=== PATIENT | female | born 1980 | race Caucasian/White ===

== ENCOUNTER 2022-11-03 14:02 | Outpatient (REF) | payer OTHER, SELFPAY ==
--- NOTE | 2022-11-03 14:13 | ECG_ITS ---
Test Reason : F50.9 Blood Pressure : / mmHG Vent. Rate : 061 BPM Atrial Rate : 061 BPM P-R Int : 130 ms QRS Dur : 080 ms QT Int : 384 ms P-R-T Axes : 061 081 076 degrees QTc Int : 386 ms Normal sinus rhythm Normal ECG When compared with ECG of 09-MAR-2009 06:54, Nonspecific T wave abnormality no longer evident in Anterior leads Referred By: Carolyn Haji Electronically Signed By:SONNY RUIZ MD
[2022-11-03 14:25] LABS: MANUAL DIFF FLAG NO
[2022-11-03 14:44] LABS: Basophils Absolute Auto 0.1 X10*3/uL (0.0-0.2); Basophils Percent Auto 0.9 % (0-2); Eosinophils Percent Auto 0.2 % (0-4); Hematocrit 40.7 % (37.0-47.0); Hemoglobin 13.3 g/dl (12.0-16.0); Imm Gran Abs Auto 0.02 X10*3/uL (0.00-0.03); Imm Gran Pct Auto 0.4 % (0.0-0.4); Lymphocytes Absolute Auto 1.8 X10*3/uL (1.2-4.9); Mean Corpuscular HGB Conc 32.7 g/dl (31.0-35.0); Mean Corpuscular Hemoglobin 33.3 pg (27.0-33.0); Mean Platelet Volume 9.1 fL (9.4-12.3); Monocytes Absolute Auto 0.6 X10*3/uL (0.1-1.2); Monocytes Percent Auto 10.6 % (2-11); Neutrophils Percent Auto 54.9 % (45-73); Platelet Count 368 X10*3/uL (160-400); Red Blood Count 3.99 X10*6/uL (4.20-5.50); Red Cell Distribution Width 12.1 % (11.0-16.0); White Blood Count 5.5 X10*3/uL (4.8-10.8)
[2022-11-03 14:52] LABS: INTERNATIONAL NORM RATIO 0.9 (0.9-1.1); Prothrombin Time 10.1 SEC (10.0-13.1)
[2022-11-03 15:17] LABS: Alanine Aminotransferase 15 U/L (0-31); Albumin Level 4.6 g/dL (3.5-5.0); Alkaline Phosphatase 63 U/L (39-117); Anion Gap 12 (12-20); Aspartate Amino Transferase 18 U/L (5-31); Bilirubin Total 0.7 mg/dL (0.0-1.0); Blood Urea Nitrogen 10 mg/dL (9-16); Calcium 10.5 mg/dL (8.4-10.2); Carbon Dioxide 28 mmol/L (22-29); Chloride 106 mmol/L (96-108); Estimated Glomerular Filt Rate > 60; Gamma Glutamyl Transpeptidase 25 U/L (7-33); Glucose Random 108 mg/dL (60-115); Potassium 4.8 mmol/L (3.3-5.1); Sodium 141 mmol/L (135-145); Total Protein 7.3 g/dL (6.5-8.0)
[2022-11-03 15:41] LABS: T4 Thyroxine 6.5 ug/dL (4.5-12.0); Thyroid Stimulating Hormone 0.67 uIU/mL (0.32-4.0); Vitamin B12 633 pg/mL (200-900); Vitamin D 25-OH Total 40.3 ng/mL (>30)
== END 2022-11-03 14:03 | disposition home or self-care (01) ==
LOC: HO.LAB 14:02
PROVIDERS: Visit Provider Nurse Practitioner Psychiatric/Mental Health
DX: F50.9 Eating disorder, unspecified (principal); F33.2 Major depressive disorder, recurrent severe without psychotic features
CPT/HCPCS: 36415; 80053; 82306; 82607; 82746; 82977; 84436; 84443; 85025; 85610; 93005

== ENCOUNTER 2022-11-07 10:45 | Outpatient (RCR) | payer OTHER, SELFPAY ==
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
--- NOTE | 2022-10-27 13:50 | PC.ADMIT ---
Patient is a 42 year old female who was referred to [facility] by her therapist d/t increase in depression with passive SI. Patient stated Passive thoughts, think about . Denied any plan or intent to kill herself. Patient given a copy of her safety plan and I reviewed her plan with her. Patient reports she is currently struggling with , disordered eating stating she does not eat enough and has lost 10 lbs in the past few months. Patient did not want to be weighted at this time and did not want to discuss this any further. Patient appearance is thin and underweight. She has a history of anorexia and bulimia and has a history of being in treatment x2. Patient does not want to address this at this time and wants to concentrate on her depressive symptoms. Patient also reports drinking 2 glasses of wine 5 times a week. She acknowledges how this may be an issue for her and is thinking about quitting however is unsure. Patient stated she drank much more while in college. 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 Patient reports since the pandemic she has been struggling with depression however her boyfriend of over a year ghosted her and broke up with her out of the blue which increased the severity of her depressive symptoms. She reports spending more time in bed. Patient has a history of trauma, see Intergrative Assessment for more information. Patient presents with depressed mood and affect. She is calm and cooperative. Medications reconciled with patient and her pharmacy. She reports taking medications as prescribed.
[2022-10-27 14:00] VITALS: BP 100/62; PULSE 73
[2022-10-27 14:10] VITALS: BMI 18.6
--- NOTE | 2022-10-27 14:10 | PC.NURSE ---
Patient documented her weight as 119 lbs in the Intake Questionnaires she completed.
--- NOTE | 2022-10-30 15:50 | HO.PHP ---
Clients case was reviewed and opened today in treatment team.
--- NOTE | 2022-10-31 13:41 | HO.PHP ---
PHP staff reached out to Марина's OP therapist to inform her of how Марина has been engaging and when her scheduled discharge date is. Марина's OP therapist phone did not have a VM, unable to leave a message.
--- NOTE | 2022-11-03 11:45 | HO.PHP ---
[facility] staff placed a referral to [facility] Psychiatry for Марина and faxed the form over. [facility] staff is awaiting a phone call about a scheduled intake.
--- NOTE | 2022-11-05 13:10 | HO.PHP ---
PHP staff member was able to obtain a psychiatry appointment for Марина through the [facility] in [place], in which she has a scheduled appointment for December 01, 2022 at 9 AM. Марина was pleased that an appointment was scheduled and noted it will be occurring the day prior to her taking a long vacation so it works out well. Марина also mentioned her PCP stated her case is too complex and no longer wants to prescribe her medication.
--- NOTE | 2022-11-07 11:59 | P.PNPSP_ITS ---
Subjective Subjective Date of Service: 11/07/22 Reason For Visit: anxiety,depression Interim History: Feels program has been helpful, less depressed. Anxious about completing program today. Has been taking the increased dose of fluvoxamine, tolerating well. No SI reported, no safety concerns. Plans to take time off from work, do some traveling this summer. Medication Compliance: Yes Side effects from medications: No Attending Groups: Yes Review of Systems Acute medical concerns: No Medical Review of Systems: unchanged Review of Systems Review of Systems Yes all other systems are reviewed and are negative Constitutional: Reports no additional constitutional complaints Mental Status Exam Mental Status Exam Narrative: NAD Patient Appearance: Appropriate Patient Orientation: Person, Place, Time and Situation Level of Consciousness: Appropriate and Alert Patient Behavior: Appropriate, Cooperative and Good Eye Contact Mood Description: Depressed (less) and Anxious (improved) Affect Description: Depressed (improved) and Anxious (improved) Patient Cognition Impaired: No Ability to Follow Directions: Excellent Speech Pattern: Clear and Appropriate Memory Description: Intact Hallucinations: None Delusions: Not Present Thought Process: Intact Depressive Symptoms: Increased Anxiety Judgement: Good Diagnostics Vital Signs (24Hr): BMI result Body Mass Index 18.6 Assessment & Plan Assessment & Plan (1) Major depressive disorder, recurrent severe without psychotic features: Status: Acute Code(s): F33.2 - Major depressive disorder, recurrent severe without psychotic features Assessment and Plan: Feels program has been helpful, less depressed. Anxious about completing program today, concerned that she will lose the progress she has made here. However, she has been practicing the coping skills, finding them helpful. Has been taking the increased dose of fluvoxamine, tolerating well. Will continue with fluvoxamine 150 mg at this time. No SI reported, no safety concerns. Plans to take time off from work, do some traveling this summer. (2) Obsessive-compulsive disorder, unspecified: Status: Acute Code(s): F42.9 - Obsessive-compulsive disorder, unspecified (3) Disordered eating: Status: Acute Code(s): F50.9 - Eating disorder, unspecified Assessment and Plan: Information provided regarding [place] care. Labs reviewed with patient. EKG results reviewed. Plan 1. Patient appears stable for discharge from [facility] at this time. 2. Patient has intake appointment scheduled at [facility] in [place] with new psychiatric provider. Patient educated on: diagnosis, medication risk/benefits and therapeutic strategies Informed Consent: understands Reason for contiued partial hosp. stay Substantial Risk for: stable for discharge Certification I certify that partial hospital treatment is medically necessary due to the symptoms and problems resulting from the patient's mental illness and the failure to treat the patient at the partial hospital level of care would likely result in the patient requiring inpatient psychiatric care which could not be prevented at a less intensive level of care. Total time managing care of this patient today ___20_ minutes. Discharge Plan Discharge Attending provider: Brandin Bowles Medications: New fluvoxamine 50 mg tablet 50 mg PO BEDTIME Qty: 30 0RF Rx Instructions: Take one tab in addition to fluvoxamine 100mg at bedtime. Discontinued fluvoxamine 25 mg tablet 25 mg PO BEDTIME Patient Comments: Patient takes at HS. Rx Instructions: Take with 100 mg tab daily. No Action lamotrigine 150 mg tablet 300 mg PO DAILY Low-Ogestrel (28) 0.3-30 mg-mcg tablet 1 tab PO DAILY Patient Comments: Patient stated she stopped using however is planning on restarting. clonazepam 0.5 mg tablet 0.5 mg PO BID PRN (Reason: anxiety) Patient Comments: Patient stated she uses only when needed. Rx Instructions: Last filled 07/18/22 #60 prn. fluvoxamine 100 mg Tablet 100 mg PO BEDTIME Patient Comments: Patient stated she was taking 175 mg however decreased the dose accordingly with her prescriber d/t side effects. acetaminophen 500 mg Capsule 1,000 mg PO DAILY PRN (Reason: Pain) Patient Comments: Patient reports taking OTC. Stand Alone Forms: Patient Portal Discharge page Patient Education: Depression (DC), Post Traumatic Stress Disorder (DC)
== END 2022-11-07 23:59 | disposition home or self-care (01) ==
LOC: HO.PHPA 10:45
PROVIDERS: Visit Provider Psychiatry & Neurology Psychiatry
DX: F33.2 Major depressive disorder, recurrent severe without psychotic features (principal); F42.9 Obsessive-compulsive disorder, unspecified; F50.9 Eating disorder, unspecified; Z79.899 Other long term (current) drug therapy
CPT/HCPCS: 90791; 90853

== ENCOUNTER → 2024-04-18 15:15 | Outpatient (BNV) | payer OTHER, SELFPAY | PROVIDERS: Visit Provider Clinical Nurse Specialist Psychiatric/Mental Health | DX: F33.2 Major depressive disorder, recurrent severe without psychotic features (principal); F42.2 Mixed obsessional thoughts and acts | CPT/HCPCS: 90791 ==

== ENCOUNTER → 2024-06-02 14:30 | Outpatient (BNV) | payer OTHER, SELFPAY | PROVIDERS: Visit Provider Psychiatry & Neurology Psychiatry | DX: F33.2 Major depressive disorder, recurrent severe without psychotic features (principal) | CPT/HCPCS: 90867; 90868 ==

== ENCOUNTER 2024-07-21 14:30 | Outpatient (RCR) | payer OTHER, SELFPAY ==
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
--- NOTE | 2024-06-03 13:03 | HO.TMSDAILY2 ---
TMS Daily Progress Note Daily TMS Progress Note Date of Service: 05/23/24 Week #: 1 Treatment #(06-23): 1 PHQ-9 Pre-Treatment (06-20): 18 PHQ-9 Most Recent (06-20): 19 Reviewed: TMS Mapping/Re-mapping completed Verification: I have reviewed the TMS Drawing Frame Tender Note and agree with the contents. The patient remains a candidate to continue TMS treatment per protocol. Assessment and Plan (1) Major depressive disorder, recurrent severe without psychotic features: Status: Acute Plan Initial mapping completed adverse effects noted local pain coil angle changed mt lowered p lola present with tx
--- NOTE | 2024-06-03 13:03 | HO.TMSDAILY2 ---
TMS Daily Progress Note Daily TMS Progress Note Date of Service: 05/24/24 Week #: 1 Treatment #(06-23): 2 PHQ-9 Pre-Treatment (06-20): 18 PHQ-9 Most Recent (06-20): 19 Reviewed: TMS Tech Note Reviewed Verification: I have reviewed the TMS Tinning Equipment Tender Note and agree with the contents. The patient remains a candidate to continue TMS treatment per protocol. Assessment and Plan (1) Major depressive disorder, recurrent severe without psychotic features: Status: Acute some fatigue post tx gradually inc mt %
--- NOTE | 2024-06-03 13:03 | HO.TMSDAILY2 ---
TMS Daily Progress Note Daily TMS Progress Note Date of Service: 05/26/24 Week #: 1 Treatment #(06-23): 3 PHQ-9 Pre-Treatment (06-20): 18 PHQ-9 Most Recent (06-20): 19 Reviewed: TMS Tech Note Reviewed Verification: I have reviewed the TMS Device Sales Consultant Note and agree with the contents. The patient remains a candidate to continue TMS treatment per protocol. Assessment and Plan (1) Major depressive disorder, recurrent severe without psychotic features: Status: Acute Plan Continue plan of care adjust MT percentage as tolerated
--- NOTE | 2024-06-03 13:03 | HO.TMSDAILY2 ---
TMS Daily Progress Note Daily TMS Progress Note Date of Service: 05/27/24 Week #: 1 Treatment #(06-23): 4 PHQ-9 Pre-Treatment (06-20): 18 PHQ-9 Most Recent (06-20): 18 Reviewed: TMS Tech Note Reviewed Verification: I have reviewed the TMS Clothes Model Note and agree with the contents. The patient remains a candidate to continue TMS treatment per protocol. Assessment and Plan (1) Major depressive disorder, recurrent severe without psychotic features: Status: Acute Plan Pt with some NEWMAN otherwise tolerating tx
--- NOTE | 2024-06-03 13:03 | HO.TMSDAILY2 ---
TMS Daily Progress Note Daily TMS Progress Note Date of Service: 05/30/24 Week #: 1 Treatment #(06-23): 5 PHQ-9 Pre-Treatment (06-20): 18 PHQ-9 Most Recent (06-20): 14 Reviewed: TMS Tech Note Reviewed Verification: I have reviewed the TMS Therapeutic Consultant Note and agree with the contents. The patient remains a candidate to continue TMS treatment per protocol. Assessment and Plan (1) Major depressive disorder, recurrent severe without psychotic features: Status: Acute Plan difficulty tolerating inc mt%
--- NOTE | 2024-06-03 13:04 | P.PNPS_ITS ---
TMS Daily Progress Note Daily TMS Progress Note Date of Service: 05/31/24 Week #: 2 Treatment #(06-23): 6 PHQ-9 Pre-Treatment (06-20): 18 PHQ-9 Most Recent (06-20): 14 Reviewed: TMS Tech Note Reviewed Verification: I have reviewed the TMS Sign Language Interpreter Note and agree with the contents. The patient remains a candidate to continue TMS treatment per protocol. Assessment and Plan (1) Major depressive disorder, recurrent severe without psychotic features: Status: Acute Plan cont to have some local pain NEWMAN
--- NOTE | 2024-06-03 14:43 | HO.TMSDAILY2 ---
TMS Daily Progress Note Daily TMS Progress Note Date of Service: 06/01/24 Week #: 2 Treatment #(06-23): 7 PHQ-9 Pre-Treatment (06-20): 18 PHQ-9 Most Recent (06-20): 14 Reviewed: TMS Tech Note Reviewed Verification: I have reviewed the TMS Outdoor Studies Professor Note and agree with the contents. The patient remains a candidate to continue TMS treatment per protocol. Assessment and Plan (1) Major depressive disorder, recurrent severe without psychotic features: Status: Acute Plan some c/o fatigue
--- NOTE | 2024-06-03 14:44 | HO.TMSDAILY2 ---
TMS Daily Progress Note Daily TMS Progress Note Date of Service: 06/02/24 Week #: 2 Treatment #(06-23): 8 PHQ-9 Pre-Treatment (06-20): 18 PHQ-9 Most Recent (06-20): 14 Reviewed: TMS Tech Note Reviewed Verification: I have reviewed the TMS Winch Stripper Note and agree with the contents. The patient remains a candidate to continue TMS treatment per protocol. Assessment and Plan (1) Major depressive disorder, recurrent severe without psychotic features: Status: Acute Plan cont to try and inc mt % if not able may need remap
--- NOTE | 2024-06-06 17:28 | HO.TMSDAILY2 ---
TMS Daily Progress Note Daily TMS Progress Note Date of Service: 06/06/24 Week #: 3 Treatment #(-): 10 PHQ-9 Pre-Treatment (-): 18 PHQ-9 Most Recent (06-20): 15 CHAVO-7 Pre-Treatment (0-21): 16 CHAVO-7 Most Recent (0-21): 13 Q-LES-Q-SF Most Recent: Q49 T 1.35 Reviewed: TMS Tech Note Reviewed Verification: I have reviewed the TMS Teller Vault Note and agree with the contents. The patient remains a candidate to continue TMS treatment per protocol. Assessment and Plan (1) Major depressive disorder, recurrent severe without psychotic features: Status: Acute (2) Obsessive-compulsive disorder, unspecified: Qualifiers: Obsessive-compulsive disorder type: mixed obsessional thoughts and acts Qualified Code(s): F42.2 - Mixed obsessional thoughts and acts Status: Acute Plan continue treatment plan
--- NOTE | 2024-06-07 17:13 | P.PNPS_ITS ---
TMS Daily Progress Note Daily TMS Progress Note Date of Service: 06/07/24 Week #: 3 Treatment #(-): 11 PHQ-9 Pre-Treatment (-): 18 PHQ-9 Most Recent (06-20): 15 CHAVO-7 Pre-Treatment (0-21): 16 CHAVO-7 Most Recent (0-21): 13 Q-LES-Q-SF Most Recent: Q49 T 1.35 Reviewed: TMS Tech Note Reviewed Verification: I have reviewed the TMS Software Engineer Web Applications Note and agree with the contents. The patient remains a candidate to continue TMS treatment per protocol. Assessment and Plan (1) Obsessive-compulsive disorder, unspecified: Qualifiers: Obsessive-compulsive disorder type: mixed obsessional thoughts and acts Qualified Code(s): F42.2 - Mixed obsessional thoughts and acts Status: Acute (2) Major depressive disorder, recurrent severe without psychotic features: Status: Acute Plan CONTINUE TX PLAN
--- NOTE | 2024-06-09 16:38 | HO.TMSDAILY2 ---
TMS Daily Progress Note Daily TMS Progress Note Date of Service: 06/08/24 Week #: 3 Treatment #(-): 12 PHQ-9 Pre-Treatment (-): 18 PHQ-9 Most Recent (06-20): 15 CHAVO-7 Pre-Treatment (0-21): 16 CHAVO-7 Most Recent (0-21): 13 Q-LES-Q-SF Most Recent: Q49 T 1.35 Reviewed: TMS Tech Note Reviewed Verification: I have reviewed the TMS Product Marketing Director Note and agree with the contents. The patient remains a candidate to continue TMS treatment per protocol.
--- NOTE | 2024-06-09 16:43 | HO.TMSDAILY2 ---
TMS Daily Progress Note Daily TMS Progress Note Date of Service: 06/09/24 Week #: 3 Treatment #(-): 12 PHQ-9 Pre-Treatment (-): 18 PHQ-9 Most Recent (06-20): 15 CHAVO-7 Pre-Treatment (0-21): 16 CHAVO-7 Most Recent (0-21): 13 Q-LES-Q-SF Most Recent: Q49 T 1.35 Reviewed: TMS Tech Note Reviewed Verification: I have reviewed the TMS Management Trainer Note and agree with the contents. The patient remains a candidate to continue TMS treatment per protocol.
--- NOTE | 2024-06-10 15:30 | P.PNPS_ITS ---
TMS Daily Progress Note Daily TMS Progress Note Date of Service: 06/10/24 Week #: 3 Treatment #(-): 14 PHQ-9 Pre-Treatment (-): 18 PHQ-9 Most Recent (06-20): 15 CHAVO-7 Pre-Treatment (0-21): 16 CHAVO-7 Most Recent (0-21): 13 CGI-I Most Recent: 3 = Minimally Improved Q-LES-Q-SF Most Recent: Q49 T 1.35 Reviewed: TMS Tech Note Reviewed Verification: I have reviewed the TMS Marine Extension Agent Note and agree with the contents. The patient remains a candidate to continue TMS treatment per protocol. Assessment and Plan (1) Obsessive-compulsive disorder, unspecified: Qualifiers: Obsessive-compulsive disorder type: mixed obsessional thoughts and acts Qualified Code(s): F42.2 - Mixed obsessional thoughts and acts Status: Acute (2) Major depressive disorder, recurrent severe without psychotic features: Status: Acute Plan continue TMS tx plan
--- NOTE | 2024-06-15 15:37 | P.PNPS_ITS ---
TMS Daily Progress Note Daily TMS Progress Note Date of Service: 06/14/24 Week #: 3 Treatment #(-): 14 PHQ-9 Pre-Treatment (-): 18 PHQ-9 Most Recent (06-20): 15 CHAVO-7 Pre-Treatment (0-21): 16 CHAVO-7 Most Recent (0-21): 13 CGI-I Most Recent: 3 = Minimally Improved Q-LES-Q-SF Most Recent: Q49 T 1.35 Reviewed: TMS Tech Note Reviewed Verification: I have reviewed the TMS Firebrick And Refractory Tile Repairer Note and agree with the contents. The patient remains a candidate to continue TMS treatment per protocol.
--- NOTE | 2024-06-17 18:22 | HO.TMSDAILY2 ---
TMS Daily Progress Note Daily TMS Progress Note Date of Service: 06/17/24 Week #: 4 Treatment #(-): 14 PHQ-9 Pre-Treatment (1-): 18 PHQ-9 Most Recent (06-20): 15 CHAVO-7 Pre-Treatment (0-21): 16 CHAVO-7 Most Recent (0-21): 13 CGI-I Most Recent: 3 = Minimally Improved Q-LES-Q-SF Most Recent: Q49 T 1.35 Reviewed: TMS Tech Note Reviewed Verification: I have reviewed the TMS Supervisor Display Fabrication Note and agree with the contents. The patient remains a candidate to continue TMS treatment per protocol. Assessment and Plan (1) Major depressive disorder, recurrent severe without psychotic features: Status: Acute (2) Obsessive-compulsive disorder, unspecified: Qualifiers: Obsessive-compulsive disorder type: mixed obsessional thoughts and acts Qualified Code(s): F42.2 - Mixed obsessional thoughts and acts Status: Acute Plan Continue TMS tx plan
--- NOTE | 2024-06-17 18:31 | P.PNPS_ITS ---
TMS Daily Progress Note Daily TMS Progress Note Date of Service: 06/15/24 Week #: 4 Treatment #(-): 14 PHQ-9 Pre-Treatment (-): 18 PHQ-9 Most Recent (06-20): 15 CHAVO-7 Pre-Treatment (0-21): 16 CHAVO-7 Most Recent (0-21): 13 CGI-I Most Recent: 3 = Minimally Improved Q-LES-Q-SF Most Recent: Q49 T 1.35 Reviewed: TMS Tech Note Reviewed Verification: I have reviewed the TMS Sash Clamp Operator Note and agree with the contents. The patient remains a candidate to continue TMS treatment per protocol. Assessment and Plan (1) Major depressive disorder, recurrent severe without psychotic features: Status: Acute (2) Obsessive-compulsive disorder, unspecified: Qualifiers: Obsessive-compulsive disorder type: mixed obsessional thoughts and acts Qualified Code(s): F42.2 - Mixed obsessional thoughts and acts Status: Acute Plan Continue TMS tx plan
--- NOTE | 2024-06-20 18:09 | P.PNPS_ITS ---
TMS Daily Progress Note Daily TMS Progress Note Date of Service: 06/20/24 Week #: 4 Treatment #(-): 19 PHQ-9 Pre-Treatment (-): 18 PHQ-9 Most Recent (06-20): 15 CHAVO-7 Pre-Treatment (0-21): 16 CHAVO-7 Most Recent (0-21): 13 CGI-I Most Recent: 3 = Minimally Improved Q-LES-Q-SF Most Recent: Q49 T 1.35 Reviewed: TMS Tech Note Reviewed Verification: I have reviewed the TMS Electric Screw Driver Operator Note and agree with the contents. The patient remains a candidate to continue TMS treatment per protocol. Assessment and Plan (1) Major depressive disorder, recurrent severe without psychotic features: Status: Acute Plan cont tx plan cont to inc mt % as tolerated
--- NOTE | 2024-06-21 17:23 | P.PNPS_ITS ---
TMS Daily Progress Note Daily TMS Progress Note Date of Service: 06/21/24 Week #: 4 Treatment #(-): 20 PHQ-9 Pre-Treatment (1-): 18 PHQ-9 Most Recent (06-20): 17 CHAVO-7 Pre-Treatment (0-21): 16 CHAVO-7 Most Recent (0-21): 13 CGI-I Most Recent: 3 = Minimally Improved Q-LES-Q-SF Most Recent: Q49 T 1.35 Reviewed: TMS Tech Note Reviewed Verification: I have reviewed the TMS Battalion Chief Note and agree with the contents. The patient remains a candidate to continue TMS treatment per protocol. Assessment and Plan (1) Major depressive disorder, recurrent severe without psychotic features: Status: Acute Plan cont plan of care tolerating tx verbal
--- NOTE | 2024-06-23 22:37 | HO.TMSDAILY2 ---
TMS Daily Progress Note Daily TMS Progress Note Date of Service: 06/22/24 Week #: 5 Treatment #(06-23): 21 PHQ-9 Pre-Treatment (-): 18 PHQ-9 Most Recent (06-20): 17 CHAVO-7 Pre-Treatment (0-21): 16 CHAVO-7 Most Recent (0-21): 13 CGI-I Most Recent: 3 = Minimally Improved Q-LES-Q-SF Most Recent: Q49 T 1.35 Reviewed: TMS Tech Note Reviewed Verification: I have reviewed the TMS Filtration Operator Note and agree with the contents. The patient remains a candidate to continue TMS treatment per protocol. Assessment and Plan (1) Major depressive disorder, recurrent severe without psychotic features: Status: Acute Plan cont plan of care tolerating tx verbal still quite depressed has seasonal component
--- NOTE | 2024-07-03 21:13 | HO.TMSDAILY2 ---
TMS Daily Progress Note Daily TMS Progress Note Date of Service: 06/23/24 Week #: 5 Treatment #(06-23): 22 PHQ-9 Pre-Treatment (-): 18 PHQ-9 Most Recent (06-20): 17 CHAVO-7 Pre-Treatment (0-21): 16 CHAVO-7 Most Recent (0-21): 13 CGI-I Most Recent: 3 = Minimally Improved Q-LES-Q-SF Most Recent: Q49 T 1.35 Reviewed: TMS Tech Note Reviewed Verification: I have reviewed the TMS Territory Representative Note and agree with the contents. The patient remains a candidate to continue TMS treatment per protocol. Assessment and Plan (1) Major depressive disorder, recurrent severe without psychotic features: Status: Acute Plan cont plan of care tolerating tx remains down
--- NOTE | 2024-07-03 21:21 | P.PNPS_ITS ---
TMS Daily Progress Note Daily TMS Progress Note Date of Service: 07/03/24 Week #: 5 Treatment #(-): 23 PHQ-9 Pre-Treatment (-): 18 PHQ-9 Most Recent (06-20): 17 CHAVO-7 Pre-Treatment (0-21): 16 CHAVO-7 Most Recent (0-21): 13 CGI-I Most Recent: 3 = Minimally Improved Q-LES-Q-SF Most Recent: Q49 T 1.35 Reviewed: TMS Tech Note Reviewed Verification: I have reviewed the TMS Installation Drafter Note and agree with the contents. The patient remains a candidate to continue TMS treatment per protocol. Assessment and Plan (1) Major depressive disorder, recurrent severe without psychotic features: Status: Acute Plan pt discouraged ? some improvement tolerating tx
--- NOTE | 2024-07-03 21:25 | HO.TMSDAILY2 ---
TMS Daily Progress Note Daily TMS Progress Note Date of Service: 06/27/24 Week #: 5 Treatment #(-): 24 PHQ-9 Pre-Treatment (1-): 18 PHQ-9 Most Recent (06-20): 17 CHAVO-7 Pre-Treatment (0-21): 16 CHAVO-7 Most Recent (0-21): 13 CGI-I Most Recent: 3 = Minimally Improved Q-LES-Q-SF Most Recent: Q49 T 1.35 Reviewed: TMS Tech Note Reviewed Verification: I have reviewed the TMS Incinerator Operator Note and agree with the contents. The patient remains a candidate to continue TMS treatment per protocol.
--- NOTE | 2024-07-03 21:27 | HO.TMSDAILY2 ---
TMS Daily Progress Note Daily TMS Progress Note Date of Service: 06/28/24 Week #: 5 Treatment #(-): 25 PHQ-9 Pre-Treatment (1-): 18 PHQ-9 Most Recent (06-20): 15 CHAVO-7 Pre-Treatment (0-21): 16 CHAVO-7 Most Recent (0-21): 13 CGI-I Most Recent: 3 = Minimally Improved Q-LES-Q-SF Most Recent: Q49 T 1.35 Reviewed: TMS Tech Note Reviewed Verification: I have reviewed the TMS Fuel Pilot Engineer Note and agree with the contents. The patient remains a candidate to continue TMS treatment per protocol. Assessment and Plan (1) Major depressive disorder, recurrent severe without psychotic features: Status: Acute Plan pt tolerating tx anxious re recent abn mammogram
--- NOTE | 2024-07-03 21:33 | P.PNPS_ITS ---
TMS Daily Progress Note Daily TMS Progress Note Date of Service: 06/29/24 Week #: 6 Treatment #(-): 26 PHQ-9 Pre-Treatment (-): 18 PHQ-9 Most Recent (06-20): 15 CHAVO-7 Pre-Treatment (0-21): 16 CHAVO-7 Most Recent (0-21): 13 CGI-I Most Recent: 3 = Minimally Improved Q-LES-Q-SF Most Recent: Q49 T 1.35 Reviewed: TMS Tech Note Reviewed Verification: I have reviewed the TMS Furnace Operator Oil Or Gas Note and agree with the contents. The patient remains a candidate to continue TMS treatment per protocol. Assessment and Plan (1) Major depressive disorder, recurrent severe without psychotic features: Status: Acute Plan pt with limited response tolerating tx
--- NOTE | 2024-07-19 12:20 | HO.TMSDAILY2 ---
TMS Daily Progress Note Daily TMS Progress Note Date of Service: 07/19/24 Week #: 4 Treatment #(06-23): 18 PHQ-9 Pre-Treatment (-): 18 PHQ-9 Most Recent (06-20): 15 CHAVO-7 Pre-Treatment (0-21): 16 CHAVO-7 Most Recent (0-21): 8 Q-LES-Q-SF Most Recent: Q49 T 1.35 Reviewed: TMS Tech Note Reviewed Verification: I have reviewed the TMS Human Resources Mgr Note and agree with the contents. The patient remains a candidate to continue TMS treatment per protocol. Assessment and Plan (1) Major depressive disorder, recurrent severe without psychotic features: Status: Acute (2) Obsessive-compulsive disorder, unspecified: Qualifiers: Obsessive-compulsive disorder type: mixed obsessional thoughts and acts Qualified Code(s): F42.2 - Mixed obsessional thoughts and acts Status: Acute
--- NOTE | 2024-08-08 14:48 | P.PNPS_ITS ---
TMS Daily Progress Note Daily TMS Progress Note Date of Service: 07/05/24 Week #: 6 Treatment #(-): 28 PHQ-9 Pre-Treatment (-): 18 PHQ-9 Most Recent (06-20): 12 CHAVO-7 Pre-Treatment (0-21): 16 CHAVO-7 Most Recent (0-21): 8 CGI-I Most Recent: 3 = Minimally Improved Q-LES-Q-SF Most Recent: Q49 T 1.35 Reviewed: TMS Tech Note Reviewed Verification: I have reviewed the TMS Media Consultant Outside Sales Note and agree with the contents. The patient remains a candidate to continue TMS treatment per protocol. Assessment and Plan (1) Major depressive disorder, recurrent severe without psychotic features: Status: Acute (2) Obsessive-compulsive disorder, unspecified: Qualifiers: Obsessive-compulsive disorder type: mixed obsessional thoughts and acts Qualified Code(s): F42.2 - Mixed obsessional thoughts and acts Status: Acute Plan pt generally feeling better cont plan of care
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
--- NOTE | 2024-08-08 14:49 | P.PNPS_ITS ---
TMS Daily Progress Note Daily TMS Progress Note Date of Service: 07/08/24 Week #: 7 Treatment #(-): 31 PHQ-9 Pre-Treatment (-): 18 PHQ-9 Most Recent (06-20): 12 CHAVO-7 Pre-Treatment (0-21): 16 CHAVO-7 Most Recent (0-21): 13 Q-LES-Q-SF Most Recent: Q49 T 1.35 Reviewed: TMS Tech Note Reviewed Verification: I have reviewed the TMS Road Supervisor Of Engines Note and agree with the contents. The patient remains a candidate to continue TMS treatment per protocol. Assessment and Plan (1) Major depressive disorder, recurrent severe without psychotic features: Status: Acute Plan cont plan of care pt improved mild sx
--- NOTE | 2024-08-08 14:49 | P.PNPS_ITS ---
TMS Daily Progress Note Daily TMS Progress Note Date of Service: 07/04/24 Week #: 6 Treatment #(-): 27 PHQ-9 Pre-Treatment (1-): 18 PHQ-9 Most Recent (06-20): 12 CHAVO-7 Pre-Treatment (0-21): 16 CHAVO-7 Most Recent (0-21): 13 CGI-I Most Recent: 3 = Minimally Improved Q-LES-Q-SF Most Recent: Q49 T 1.35 Reviewed: TMS Tech Note Reviewed Verification: I have reviewed the TMS Bankman Note and agree with the contents. The patient remains a candidate to continue TMS treatment per protocol. Assessment and Plan (1) Major depressive disorder, recurrent severe without psychotic features: Status: Acute (2) Obsessive-compulsive disorder, unspecified: Qualifiers: Obsessive-compulsive disorder type: mixed obsessional thoughts and acts Qualified Code(s): F42.2 - Mixed obsessional thoughts and acts Status: Acute Plan cont tx plan pt brighter cont plan of care
--- NOTE | 2024-08-08 14:49 | P.PNPS_ITS ---
TMS Daily Progress Note Daily TMS Progress Note Date of Service: 07/08/24 Week #: 7 Treatment #(06-23): 31 PHQ-9 Pre-Treatment (-): 18 PHQ-9 Most Recent (06-20): 12 CHAVO-7 Pre-Treatment (0-): 16 CHAVO-7 Most Recent (0-): 8 Q-LES-Q-SF Most Recent: Q49 T 1.35 Reviewed: TMS Tech Note Reviewed Verification: I have reviewed the TMS Radio Division Lieutenant Note and agree with the contents. The patient remains a candidate to continue TMS treatment per protocol. Assessment and Plan (1) Major depressive disorder, recurrent severe without psychotic features: Status: Acute Plan [place] range of affect better energy can have some mild breakthrough symptoms dysphoria generally improved no complaints of side effects
--- NOTE | 2024-08-08 14:49 | P.PNPS_ITS ---
TMS Daily Progress Note Daily TMS Progress Note Date of Service: 07/07/24 Week #: 6 Treatment #(-): 30 PHQ-9 Pre-Treatment (-): 18 PHQ-9 Most Recent (06-20): 12 CHAVO-7 Pre-Treatment (0-21): 16 CHAVO-7 Most Recent (0-21): 8 CGI-I Most Recent: 3 = Minimally Improved Q-LES-Q-SF Most Recent: Q49 T 1.35 Reviewed: TMS Tech Note Reviewed Verification: I have reviewed the TMS Cnc Lathe Programmer Note and agree with the contents. The patient remains a candidate to continue TMS treatment per protocol. Assessment and Plan (1) Major depressive disorder, recurrent severe without psychotic features: Status: Acute Plan continue plan of care
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
--- NOTE | 2024-08-08 14:50 | P.PNPS_ITS ---
TMS Daily Progress Note Daily TMS Progress Note Date of Service: 07/05/24 Week #: 6 Treatment #(-): 28 PHQ-9 Pre-Treatment (-): 18 PHQ-9 Most Recent (06-20): 12 CHAVO-7 Pre-Treatment (0-21): 16 CHAVO-7 Most Recent (0-21): 8 CGI-I Most Recent: 3 = Minimally Improved Q-LES-Q-SF Most Recent: Q49 T 1.35 Reviewed: TMS Tech Note Reviewed Verification: I have reviewed the TMS Shot Core Drill Operator Helper Note and agree with the contents. The patient remains a candidate to continue TMS treatment per protocol. Assessment and Plan (1) Major depressive disorder, recurrent severe without psychotic features: Status: Acute Plan cont plan of care
--- NOTE | 2024-08-08 14:52 | P.PNPS_ITS ---
TMS Daily Progress Note Daily TMS Progress Note Date of Service: 07/07/24 Week #: 6 Treatment #(-): 30 PHQ-9 Pre-Treatment (-): 18 PHQ-9 Most Recent (06-20): 12 CHAVO-7 Pre-Treatment (0-21): 16 CHAVO-7 Most Recent (0-21): 13 CGI-I Most Recent: 3 = Minimally Improved Q-LES-Q-SF Most Recent: Q49 T 1.35 Reviewed: TMS Tech Note Reviewed Verification: I have reviewed the TMS Felt Dyeing Machine Tender Note and agree with the contents. The patient remains a candidate to continue TMS treatment per protocol. Assessment and Plan (1) Major depressive disorder, recurrent severe without psychotic features: Status: Acute Plan cont plan of care pt improved patient bright talkative considering dating no complaints of side effects
--- NOTE | 2024-08-08 15:29 | P.PNPS_ITS ---
TMS Daily Progress Note Daily TMS Progress Note Date of Service: 07/06/24 Week #: 6 Treatment #(-): 29 PHQ-9 Pre-Treatment (1-): 18 PHQ-9 Most Recent (06-20): 12 CHAVO-7 Pre-Treatment (0-21): 16 CHAVO-7 Most Recent (0-21): 13 CGI-I Most Recent: 3 = Minimally Improved Q-LES-Q-SF Most Recent: Q49 T 1.35 Reviewed: TMS Tech Note Reviewed Verification: I have reviewed the TMS Strike Plate Attacher Note and agree with the contents. The patient remains a candidate to continue TMS treatment per protocol. Assessment and Plan (1) Major depressive disorder, recurrent severe without psychotic features: Status: Acute Plan cont plan of care pt improved
--- NOTE | 2024-08-08 15:52 | P.PNPS_ITS ---
TMS Daily Progress Note Daily TMS Progress Note Date of Service: 07/12/24 Week #: 7 Treatment #(-): 32 PHQ-9 Pre-Treatment (-): 18 PHQ-9 Most Recent (06-20): 10 CHAVO-7 Pre-Treatment (0-21): 16 CHAVO-7 Most Recent (0-21): 13 CGI-I Most Recent: 3 = Minimally Improved Q-LES-Q-SF Most Recent: Q49 T 1.35 Reviewed: TMS Tech Note Reviewed Verification: I have reviewed the TMS Liquor Grinding Mill Operator Note and agree with the contents. The patient remains a candidate to continue TMS treatment per protocol. Assessment and Plan (1) Major depressive disorder, recurrent severe without psychotic features: Status: Acute Plan Patient on taper improved PHQ-9 disla affect able to discuss things she loves and enjoys no complaints of side effects
--- NOTE | 2024-08-08 15:55 | HO.TMSDAILY2 ---
TMS Daily Progress Note Daily TMS Progress Note Date of Service: 07/13/24 Week #: 7 Treatment #(-): 33 PHQ-9 Pre-Treatment (1-): 18 PHQ-9 Most Recent (06-20): 10 CHAVO-7 Pre-Treatment (0-21): 16 CHAVO-7 Most Recent (0-21): 8 CGI-I Most Recent: 3 = Minimally Improved Q-LES-Q-SF Most Recent: Q49 T 1.35 Reviewed: TMS Tech Note Reviewed Verification: I have reviewed the TMS Justice Court Deputy Clerk Note and agree with the contents. The patient remains a candidate to continue TMS treatment per protocol. Assessment and Plan (1) Major depressive disorder, recurrent severe without psychotic features: Status: Acute Plan Patient on taper improved PHQ-9 disla affect no complaints of side effects
--- NOTE | 2024-08-08 15:57 | HO.TMSDAILY2 ---
TMS Daily Progress Note Daily TMS Progress Note Date of Service: 07/18/24 Week #: 8 Treatment #(-): 34 PHQ-9 Pre-Treatment (-): 18 PHQ-9 Most Recent (06-20): 11 CHAVO-7 Pre-Treatment (0-21): 16 CHAVO-7 Most Recent (0-21): 8 CGI-I Most Recent: 3 = Minimally Improved Q-LES-Q-SF Most Recent: Q49 T 1.35 Reviewed: TMS Tech Note Reviewed Verification: I have reviewed the TMS Burring Machine Operator Note and agree with the contents. The patient remains a candidate to continue TMS treatment per protocol. Assessment and Plan (1) Major depressive disorder, recurrent severe without psychotic features: Status: Acute Plan Difficult to evaluate response right now patient's stepfather a number of days ago dealing with that grief and her mother's grief
--- NOTE | 2024-08-08 16:21 | HO.TMSDAILY2 ---
TMS Daily Progress Note Daily TMS Progress Note Date of Service: 07/20/24 Week #: 8 Treatment #(06-23): 35 PHQ-9 Pre-Treatment (06-20): 18 PHQ-9 Most Recent (06-20): 11 CHAVO-7 Pre-Treatment (0-21): 16 CHAVO-7 Most Recent (0-21): 8 CGI-I Most Recent: 3 = Minimally Improved Q-LES-Q-SF Most Recent: Q49 T 1.35 Reviewed: TMS Tech Note Reviewed Verification: I have reviewed the TMS Transmission Engineer Note and agree with the contents. The patient remains a candidate to continue TMS treatment per protocol. Assessment and Plan (1) Major depressive disorder, recurrent severe without psychotic features: Status: Acute Plan Unfortunately her course has been complicated by acute grief her stepfather whom she Concerta father just and she is concerned about her mother and also dealing with acute grief
--- NOTE | 2024-08-08 16:39 | P.PNPS_ITS ---
TMS Daily Progress Note Daily TMS Progress Note Date of Service: 07/21/24 Week #: 8 Treatment #(06-23): 36 PHQ-9 Pre-Treatment (06-20): 18 PHQ-9 Most Recent (06-20): 11 CHAVO-7 Pre-Treatment (0-21): 16 CHAVO-7 Most Recent (0-21): 9 CGI-I Most Recent: 3 = Minimally Improved Q-LES-Q-SF Most Recent: Q49 T 1.35 Reviewed: TMS Tech Note Reviewed Verification: I have reviewed the TMS Canine Enforcement Officer Note and agree with the contents. The patient remains a candidate to continue TMS treatment per protocol. Assessment and Plan (1) Major depressive disorder, recurrent severe without psychotic features: Status: Acute Plan Patient here for final TMS visit. Unfortunately her condition was complicated by the of her stepfather couple of weeks ago in general patient has felt better
== END 2024-07-21 15:30 | disposition home or self-care (01) ==
LOC: HO.PTMS 14:30
PROVIDERS: Visit Provider Clinical Nurse Specialist Psychiatric/Mental Health
DX: F33.2 Major depressive disorder, recurrent severe without psychotic features (principal); F42.2 Mixed obsessional thoughts and acts
CPT/HCPCS: 90867; 90868